=== PATIENT | female | born 1995 | race Caucasian/White ===

== ENCOUNTER 2018-01-11 22:32 | Emergency (ER) | payer MEDICAID ==
[~2018-01-11] VITALS: Ht 160 cm; Wt 70.5 kg
[2018-01-11 22:41] VITALS: BP 125/77
--- NOTE | 2018-01-11 22:43 | NUR ---
PT TAKEN TO BED 1
--- NOTE | 2018-01-11 22:45 | NUR ---
22/ CAME IN, C/O "SORE THROAT" X5DAYS SINCE SAT, 10/10 SHARP PAIN, NONRADIATING. PT REPORTS FEVER LAST SAT, BUT DENIES FEVER AT THIS TIME. PT REPORTS SWOLLEN TONSILS. PT REPORTS NOT BEING ABLE TO EAT OR SLEEP DUE TO PAIN. REPORTS TAKING TYLENOL FOR PAIN, LAST AT 1400 WITH LITTLE RELIEF. PT DENIES CP, SOB, N/V/D, DYSURIA. AOX4, AMBULATORY, RR EVEN AND UNLABORED. PT DENIES MED HX, RX, OTC OTHER THAN TYLENOL, NKA. ER MD AWARE.
[2018-01-11 23:16] VITALS: BP 125/75
--- NOTE | 2018-01-11 23:16 | NUR ---
Patient discharged with v/s stable. Written and verbal after care instructions given and explained by Dr. Smyth. Patient alert, oriented and verbalized understanding of instructions. Ambulatory with steady gait. All questions addressed prior to discharge by Dr. Smyth.. ID band removed. Patient advised to follow up with PMD. Rx of AUGMENTIN 875NG PO given. Patient educated on indication of medication including possible reaction and side effects. Opportunity to ask questions provided and answered by Dr. Smyth.
== END 2018-01-11 23:16 | disposition home or self-care (01) ==
LOC: MED 22:32
DX: J03.90 Acute tonsillitis, unspecified (principal)
CPT/HCPCS: 99283

== ENCOUNTER 2018-08-24 09:28 | Emergency (ER) | payer MEDICAID ==
[~2018-08-24] VITALS: Ht 160 cm; Wt 72.6 kg
[2018-08-24 09:55] VITALS: BP 129/85
--- NOTE | 2018-08-24 09:56 | NUR ---
PT TRIAGED AND PLACED IN BED 11
--- NOTE | 2018-08-24 09:59 | NUR ---
PT C/O SORE THROAT AND SWOLLEN TONSILS SINCE LAST NIGHT 10/10 ACHING PAIN. DENIES N/V/D, CP, SOB. NO OTHER COMPLAINTS. HX---NONE MEDS---NONE
[2018-08-24] MEDS ORDERED: KETOROLAC 15 MG/ML VIAL IM ONE (10:35)
--- NOTE | 2018-08-24 10:57 | NUR ---
strep and flu swab obtained.
[2018-08-24 11:39] VITALS: BP 125/78
--- NOTE | 2018-08-24 11:39 | NUR ---
Patient discharged with v/s stable. Written and verbal after care instructions given and explained. Patient alert, oriented and verbalized understanding of instructions. Ambulatory with steady gait. All questions addressed prior to discharge. ID band removed. Patient advised to follow up with PMD. Rx of augmentin and ibuprofen given. Patient educated on indication of medication including possible reaction and side effects. Opportunity to ask questions provided and answered.
== END 2018-08-24 11:39 | disposition home or self-care (01) ==
LOC: MED 09:28
DX: J02.9 Acute pharyngitis, unspecified (principal); H66.92 Otitis media, unspecified, left ear
CPT/HCPCS: 36415; 81002; 81025; 87081; 87804; 96372; 99284; J1885

== ENCOUNTER 2024-05-22 15:15 | Emergency (ER) | payer OTHER ==
[~2024-05-22] VITALS: Ht 167.6 cm; Wt 59.0 kg
[2024-05-22 15:24] VITALS: BP 126/84; RESP 18; TEMP 98; O2SAT 99
[2024-05-22] MEDS: ACETAMINOPHEN 325 MG TAB PO ONE (16:18)
[2024-05-22 17:06] VITALS: BP 125/82; PULSE 78; RESP 16; TEMP 98; O2SAT 99
== END 2024-05-22 17:06 | disposition home or self-care (01) ==
LOC: MED 15:15
DX: R10.31 Right lower quadrant pain (principal); R10.32 Left lower quadrant pain; Z98.890 Other specified postprocedural states; V89.2XXA Person injured in unspecified motor-vehicle accident, traffic, initial encounter; Y93.89 Activity, other specified; Y92.410 Unspecified street and highway as the place of occurrence of the external cause; Y99.8 Other external cause status
CPT/HCPCS: 99283